=== PATIENT | male | born 2000 | race African-American/Black ===

== ENCOUNTER 2021-07-29 10:32 | Emergency (ER) | payer BC, SELFPAY ==
[2021-07-29] MEDS ORDERED: Dexamethasone 10 MG/ML VIAL ONE (10:52)
== END 2021-07-29 11:21 | disposition home or self-care (01) ==
LOC: CSHERS 10:32
DX: J45.901 Unspecified asthma with (acute) exacerbation (principal); Z79.899 Other long term (current) drug therapy
CPT/HCPCS: J1100; J7620